=== PATIENT | male | born 1960 | race Caucasian/White ===

== ENCOUNTER 2019-02-25 12:13 | Outpatient (CLI) | payer OTHER ==
[2019-02-25] MEDS ORDERED: GADOBUTROL 10 MMOL/10 ML VIAL ONE (12:33)
--- NOTE | 2019-02-26 12:27 | MRI Report ---
Reason: JOINT DISORDERS LT KNEE Procedure Date: 02/25/2019 Accession Number: [id number] / [id number] Procedure: MRI - Knee LT W/WO CPT Code: Final Report FULL RESULT: EXAM: LEFT KNEE MRI WITHOUT AND WITH CONTRAST EXAM DATE: 02/25/2019 12:42 PM. CLINICAL HISTORY: Lateral soft tissue mass. COMPARISON: None. TECHNIQUE: Multiplanar, multisequence T1-weighted and fluid-sensitive sequences of the knee before and after administration of intravenous contrast. IV contrast: 10 mL Gadavist. Other: None. FINDINGS: Cruciate ligaments: The anterior and posterior cruciate ligaments appear intact. Medial meniscus: Truncation, deformity and deficiency of the body of the medial meniscus. Considerations include previous partial resection versus tear and degeneration. Lateral meniscus: Intact. No tear is identified. Collateral ligaments: The medial and fibular collateral ligaments appear intact. 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 Moderate cartilage thinning over the upper aspect of the patella. Mild cartilage thinning and surface irregularity in the medial greater than lateral compartments. Tricompartmental marginal osteophytes. Extensor mechanisms: The patellar tendon and quadriceps insertion appear intact. Miscellaneous: Lobulated and loculated cystic structure with peripheral contrast enhancement peripheral to the lateral margin of the lateral tibial plateau abuts the lower anterior margin of the fibular collateral ligament measuring 1.6 x 1.0 x 2.0 cm. Possible ganglion or synovial cyst. No obvious associated meniscus tear. IMPRESSION: 1. Cystic lesion at the lateral margin of the knee corresponding to palpable abnormality. Likely ganglion cyst. 2. Tricompartmental osteoarthritis. 3. Bipartite patella. [facility]
== END 2019-02-25 12:14 | disposition home or self-care (01) ==
LOC: DI 12:13
PROVIDERS: ATTEND Orthopaedic Surgery
DX: M25.862 Other specified joint disorders, left knee (principal); M17.12 Unilateral primary osteoarthritis, left knee; Q74.1 Congenital malformation of knee
CPT/HCPCS: 73723; A9585